=== PATIENT | female | born 1980 | race Caucasian/White ===

== ENCOUNTER → 2018-03-05 | Outpatient (CLI) | payer OTHER ==
[~2018-03-05] MED LIST: DARV PO; PREN0.01 PO
== END ==
LOC: HPND 09:05
PROVIDERS: ATTEND Obstetrics & Gynecology
DX: O09.522 Supervision of elderly multigravida, second trimester (principal); Z36.3 Encounter for antenatal screening for malformations
CPT/HCPCS: 76811

== ENCOUNTER 2018-07-16 11:01 | Inpatient (IN) ==
[2018-07-16] MEDS ORDERED: Sod Chloride 0.9% Inj 1,000 ML IV.CONT PRN (11:28)
[2018-07-16] MEDS ORDERED: fentaNYL Citrate Inj 100 MCG/2 ML Ampul IV.PUSH PRN ×2 (11:28)
[2018-07-16] MEDS ORDERED: Oxytocin 30 Units/500ml Premix 30 UNITS/500 ML BAG IV.SIG ONE (11:28)
[2018-07-16] MEDS ORDERED: Naloxone Inj 0.4 MG/ML Vial IV.PUSH PRN ×2 (11:28→15:51)
[2018-07-16] MEDS ORDERED: Sodium Chlor 0.9% Inj 500 ML IV.SIG PRN (11:28)
[2018-07-16] MEDS ORDERED: Citric Acid/Sodium Citrate Liq 30 ML UDC PO SCH (11:30)
--- NOTE | 2018-07-16 11:33 | ED ---
History of Present Illness Primary Care Physician: No Primary Care Physician [facility] History of Present Illness: at 26mib4mgq, presents with cxns since 1AM. Pt had a period amount of bleeding at 5AM this morning that has since subsided. +FM obhx: PAP smear w/ HPV during - f/u colpo x 1 - 2008 medhx: none surghx: none meds: PNV all: NKDA Review of Systems All other systems reviewed negative except as stated in HPI Medications and Allergies Allergies Allergy/AdvReac Type Severity Reaction Status Date / Time sulfamethoxazole Allergy Severe Unverified 05/07/17 14:57 trimethoprim Allergy Severe Unverified 05/07/17 14:57 Exam Vital signs: FH: 41 FHR: cat 1 tracing, will cont to monitor SVE: 6/80/-2 , bulging bag - Constitutional no acute distress - Routine Respiratory Exam Present: CTA bilaterally - Routine Cardiovascular Exam Present: RRR, S1, S2 - Routine Abdominal Exam Present: soft, normoactive bowel sounds Assessment and Plan - Diagnosis (1) 38 weeks gestation of Code(s): Z3A.38 - 38 weeks gestation of Status: Acute - Plan at [id number], presents with cxns since 1AM. - Admit to L&D - GBS negative - Continue to monitor labor progress - MD aware Discharge Plan - Discharge Disposition Patient Disposition: 30 Still Patient - Physicians Team ED Provider: Mansoor Duncan Primary Care Provider: Primary Care MarceloNo - Discharge Instructions Print Language: Angolan
[2018-07-16 12:02] LABS: Baso % (Auto) 0.1 % (0.0-2.0); Eos % (Auto) 0.1 % (0.0-4.0); Hematocrit 37.7 % (35.0-46.0); Hemoglobin 13.4 gm/dL (11.6-15.3); Lymph % (Auto) 6.7 % (9.0-44.0); Mean Corpuscular HGB Conc 35.5 % (32.0-36.0); Mean Corpuscular Hemoglobin 33.1 pg (27.0-34.0); Mean Corpuscular Volume 93.4 fL (80.0-100.0); Mono # (Auto) 0.7 th/mm3 (0.0-0.9); Mono % (Auto) 4.6 % (0.0-8.0); Neut # (Auto) 13.1 th/mm3 (1.8-7.7); Neut % (Auto) 88.5 % (16.0-70.0); Platelet Count 140 th/mm3 (150-450); Red Blood Count 4.03 mil/mm3 (4.00-5.30); Red Cell Distribution Width 12.3 % (11.6-17.2); White Blood Count 14.8 th/mm3 (4.0-11.0)
[2018-07-16] MEDS ORDERED: fentaNYL 2MCG-Bupiv 0.125% Epi 150 ML EPIDURAL ONE (12:50)
[2018-07-16] MEDS ORDERED: Lidocaine 1%/Epinephrine 1:200,000 PF Inj 30 ML Vial ONE (13:04)
[2018-07-16 13:24] LABS: Bacteria,Urine Moderate /hpf; Bilirubin,Urine Negative (Negative); Calcium Oxalate Crystals,Urine Occasional /hpf; Clarity,Urine Cloudy (Clear); Color,Urine Yellow (Yellw/Straw); Glucose,Urine (UA) Negative (Negative); Leukocyte Esterase,Urine Negative (Negative); Mucus,Urine Moderate /lpf (Occasional); Nitrite,Urine Negative (Negative); Squamous Epithelial Cell,Urine 2 /hpf (0-5)
[2018-07-16] MEDS ORDERED: fentaNYL 2MCG-Bupiv 0.125% Epi 150 ML EPIDURAL PRN (14:37)
[2018-07-16] MEDS ORDERED: fentaNYL Citrate Inj 100 MCG/2 ML Ampul EPIDURAL ONE (14:37)
[2018-07-16] MEDS ORDERED: Oxytocin 30 Units/500ml Premix 30 UNITS/500 ML BAG IV.CONT PRN ×2 (15:51)
[2018-07-16] MEDS ORDERED: Bisacodyl 10 MG Supp RECTAL PRN ×2 (15:51)
[2018-07-16] MEDS ORDERED: Benzocaine 20% Top Spray 60 ML Can TOPICAL PRN ×2 (15:51)
[2018-07-16] MEDS ORDERED: Acetaminophen 325 MG Tablet PO PRN ×2 (15:51)
[2018-07-16] MEDS ORDERED: Witch Hazel 50%/Glyderin 12.5% 40 Pad Jar RECTAL PRN ×2 (15:51)
[2018-07-16] MEDS ORDERED: Zolpidem Tartrate 5 MG Tablet PO PRN ×2 (15:51→21:00)
--- NOTE | 2018-07-16 15:56 | P.OBDELI ---
Weeks Gestation: 38 Patient Started Active Labor: Yes Artificial Rupture of Membrane: Yes Anesthesia: Epidural Episiotomy: none Vaginal Delivery: Normal, Spontaneous Presentation: Occiput anterior, Vertex Nuchal Cord: None Delayed Cord Clamping (45 sec): Yes Placenta: Spontaneous delivery, Intact, 3 vessel cord Laceration: None Estimated blood loss (mL): 150 : Male Infant Male A Infant Delivery Date: 07/16/18 Infant Delivery Time: 15:36 Weight: 3.34 kg score (1 min): 8 score (5 min): 9
[2018-07-16] MEDS ORDERED: Diphtheria/Tetanus/Pertussis Vaccine Inj 0.5 ML Syringe IM ONE (16:00)
[2018-07-16] MEDS ORDERED: Measles/Mumps/Rubella Vaccine Inj 0.5 ML Vial SQ ONE (17:00)
[2018-07-16 17:25] LABS: Amphetamine Urine With Conf Neg (Neg); Benzodiazepine Urine With Conf Neg (Neg)
[2018-07-16] MEDS ORDERED: Senna/Docusate Sodium 8.6/50 MG Tablet PO SCH (21:00)
[2018-07-17] MEDS: Senna/Docusate Sodium 8.6/50 MG Tablet PO SCH ×2 (07:21→08:42)
--- NOTE | 2018-07-17 08:23 | P.PNOB ---
Subjective Post day: 1 Interval history: day # 1 Afebrile with stable vitals overnight. Decreased lochia. Denies dysuria. No breast pain. Appetite good. No nausea or vomiting. Ambulating well. Denies calf pain or shortness of breath. Otherwise, she is doing well this morning and has no other complaints. Objective Vital Signs/I&O: Vital Signs 07/16/18 11:20 07/16/18 11:49 07/16/18 11:55 Temperature Pulse Rate 71 69 Respiratory Rate 18 Blood Pressure 111/75 07/16/18 12:10 07/16/18 12:40 07/16/18 13:05 Temperature Pulse Rate 63 72 69 Respiratory Rate Blood Pressure 124/61 116/62 07/16/18 13:15 07/16/18 13:21 07/16/18 13:25 Temperature 98.2 F Pulse Rate 74 88 86 Respiratory Rate 16 Blood Pressure 121/71 119/62 108/57 L 07/16/18 13:40 07/16/18 13:45 07/16/18 13:50 Temperature Pulse Rate 91 H 86 87 Respiratory Rate Blood Pressure 113/50 L 112/58 L 07/16/18 13:55 07/16/18 14:00 07/16/18 14:05 Temperature Pulse Rate 72 121 H Respiratory Rate 18 Blood Pressure 07/16/18 14:10 07/16/18 14:15 07/16/18 14:20 Temperature Pulse Rate 71 82 88 Respiratory Rate Blood Pressure 107/54 L 104/58 L 112/65 07/16/18 14:25 07/16/18 14:30 07/16/18 14:40 Temperature Pulse Rate 86 86 80 Respiratory Rate Blood Pressure 115/55 L 129/64 112/66 07/16/18 15:00 07/16/18 15:10 07/16/18 15:25 Temperature 98.4 F 98.5 F Pulse Rate 73 83 71 Respiratory Rate 18 Blood Pressure 114/94 H 07/16/18 15:44 07/16/18 15:45 07/16/18 16:00 Temperature Pulse Rate 89 86 Respiratory Rate 16 Blood Pressure 115/56 L 110/67 07/16/18 16:05 07/16/18 16:15 07/16/18 16:30 Temperature Pulse Rate 73 73 Respiratory Rate 16 Blood Pressure 103/67 114/62 07/16/18 16:44 07/16/18 16:45 07/16/18 17:15 Temperature Pulse Rate 73 Respiratory Rate 14 16 Blood Pressure 113/60 07/16/18 17:40 07/16/18 20:00 Temperature 98.8 F 98.4 F Pulse Rate 70 84 Respiratory Rate 18 18 Blood Pressure 113/65 105/67 Intake & Output 07/16/18 07/17/18 07/17/18 18:59 06:59 18:59 Weight 72.121 kg Result Diagrams: 07/16/18 11:45 Objective Remarks: General: Alert, well appearing, in no acute distress Skin: Warm and dry HEENT: Atraumatic. Moist mucus membranes Cardiac: Regular rate and rhythm without murmur Pulmonary: No increased work of breathing. Clear to auscultation bilaterally with good air movement. Abdominal: Non-tender. uterus firm and below the umbilicus Extremities: 2+ pedal pulses, no edema, no calf tenderness Medications and IVs: Active Medications Acetaminophen (Tylenol) 650 mg PO Q4H PRN PRN Reason: PAIN SCALE 1 TO 2 Al Hydroxide/Mg Hydroxide (Milk Of Magnesia Liq) 30 ml PO Q12H PRN PRN Reason: Mild Constipation Benzocaine (Americaine 20% Top [place]) 1 spray TOPICAL Q4H PRN PRN Reason: For Perineum Discomfort Bisacodyl (Dulcolax Supp) 10 mg RECTAL DAILY PRN PRN Reason: SEVERE CONSITIPATION Ephedrine Sulfate (Ephedrine/Ns Syringe) 10 mg IV.PUSH UNSCH PRN PRN Reason: SEE LABEL COMMENTS Stop: 07/17/18 14:37 Oxytocin (Pitocin 30 Units/Ns 500 Ml Premix) 30 units in 500 mls @ 100 mls/hr IV.CONT UNSCH PRN PRN Reason: Heavy bleeding Ibuprofen (Motrin) 800 mg PO Q8H PRN PRN Reason: For Cramping Lactulose (Lactulose Liq) 30 ml PO DAILY PRN PRN Reason: SEVERE CONSITIPATION Miscellaneous Information (Misc Information) 1 each OTHER UNSCH PRN PRN Reason: SEE LABEL COMMENTS Stop: 07/17/18 14:37 Miscellaneous Information (Misc Information) 1 each OTHER UNSCH PRN PRN Reason: SEE LABEL COMMENTS Stop: 07/17/18 14:37 Naloxone HCl (Narcan Inj) 0.1 mg IV.PUSH Q2M PRN PRN Reason: for opiate reversal Ondansetron HCl (Zofran Odt) 4 mg PO Q6H PRN PRN Reason: NAUSEA OR VOMITING Senna/Docusate Sodium (Priya-Colace) 1 tab PO BID [facility] Last Admin: 07/17/18 07:21 Dose: Not Given Sennosides (Senokot) 17.2 mg PO Q12H PRN PRN Reason: Moderate Constipation Sodium Chloride (Ns Flush) 2 ml IV.FLUSH BID [facility] Last Admin: 07/17/18 07:21 Dose: Not Given Sodium Chloride (Ns Flush) 2 ml IV.FLUSH PRN PRN PRN Reason: FLUSH AFTER USING IV ACCESS Witch [place]ireille/Glycerin (Tucks Pads) 1 applicatio RECTAL QID PRN PRN Reason: HEMORRHOIDS Zolpidem Tartrate (Ambien) 5 mg PO HS PRN PRN Reason: SLEEP Assessment and Plan - Diagnosis (1) 38 weeks gestation of Code(s): Z3A.38 - 38 weeks gestation of Status: Acute (2) Vaginal delivery Code(s): O80 - Encounter for full-term uncomplicated delivery Status: Acute - Plan 38 y/o female who is PPD# 1 s/p vaginal delivery -Continue routine care. -Motrin /APAP as needed for pain. -Encouraged OOB. Advised pelvic rest for 6 wks. - control: undecided -Anticipate DC home tomorrow Care was discussed with: Dr. Duncan
[2018-07-18 08:28] VITALS: BP 98/60; PULSE 87; RESP 20; TEMP 98.1
--- NOTE | 2018-07-18 08:45 | P.PNOB ---
Subjective Post day: 2 Interval history: day #2 AFVSS overnight. Decreased lochia. Denies dysuria. No breast pain. Appetite good. No nausea or vomiting. Ambulating well. Denies calf pain or shortness of breath. Reports left-sided back pain. Otherwise, she is doing well this morning and has no other complaints. Objective Vital Signs/I&O: Vital Signs 07/17/18 20:00 07/18/18 08:00 Temperature 98.6 F 98.1 F Pulse Rate 84 87 Respiratory Rate 18 20 Blood Pressure 96/54 L 98/60 L Result Diagrams: 07/16/18 11:45 Objective Remarks: GENERAL: Well-nourished, well-developed patient. CARDIOVASCULAR: Regular rate and rhythm without murmurs, gallops, or rubs. RESPIRATORY: Breath sounds equal bilaterally. No accessory muscle use. ABDOMEN/GI: Abdomen soft, non-tender. Fundus: Firm, non-tender at umbilicus. BACK: Left CVA tenderness GENITOURINARY: Light to moderate bleeding. EXTREMITIES: No cyanosis or edema, non-tender, without signs of DVT. Medications and IVs: Active Medications Acetaminophen (Tylenol) 650 mg PO Q4H PRN PRN Reason: PAIN SCALE 1 TO 2 Al Hydroxide/Mg Hydroxide (Milk Of Magnesia Liq) 30 ml PO Q12H PRN PRN Reason: Mild Constipation Benzocaine (Americaine 20% Top [place]) 1 spray TOPICAL Q4H PRN PRN Reason: For Perineum Discomfort Bisacodyl (Dulcolax Supp) 10 mg RECTAL DAILY PRN PRN Reason: SEVERE CONSITIPATION Oxytocin (Pitocin 30 Units/Ns 500 Ml Premix) 30 units in 500 mls @ 100 mls/hr IV.CONT UNSCH PRN PRN Reason: Heavy bleeding Ibuprofen (Motrin) 800 mg PO Q8H PRN PRN Reason: For Cramping Lactulose (Lactulose Liq) 30 ml PO DAILY PRN PRN Reason: SEVERE CONSITIPATION Naloxone HCl (Narcan Inj) 0.1 mg IV.PUSH Q2M PRN PRN Reason: for opiate reversal Ondansetron HCl (Zofran Odt) 4 mg PO Q6H PRN PRN Reason: NAUSEA OR VOMITING Senna/Docusate Sodium (Priya-Colace) 1 tab PO BID [facility] Last Admin: 07/17/18 08:42 Dose: Not Given Sennosides (Senokot) 17.2 mg PO Q12H PRN PRN Reason: Moderate Constipation Sodium Chloride (Ns Flush) 2 ml IV.FLUSH BID [facility] Last Admin: 07/17/18 08:41 Dose: Not Given Sodium Chloride (Ns Flush) 2 ml IV.FLUSH PRN PRN PRN Reason: FLUSH AFTER USING IV ACCESS Witch [place]/Glycerin (Tucks Pads) 1 applicatio RECTAL QID PRN PRN Reason: HEMORRHOIDS Last Admin: 07/17/18 11:31 Dose: 1 applicatio Zolpidem Tartrate (Ambien) 5 mg PO HS PRN PRN Reason: SLEEP Assessment and Plan - Diagnosis (1) 38 weeks gestation of Code(s): Z3A.38 - 38 weeks gestation of Status: Acute (2) Vaginal delivery Code(s): O80 - Encounter for full-term uncomplicated delivery Status: Acute - Plan 38y/o female who is PPD#2 s/p vaginal delivery. Left CVA tenderness -Follow-up UA -Continue routine care. -Motrin PRN pain. -Encouraged OOB. Advised pelvic rest for 6 wks. -D/c likely today or tomorrow wdw Dr. Becker
[2018-07-18 10:26] LABS: Bacteria,Urine Many /hpf; Bilirubin,Urine Negative (Negative); Clarity,Urine Hazy (Clear); Color,Urine Yellow (Yellw/Straw); Glucose,Urine (UA) Negative (Negative); Leukocyte Esterase,Urine Small (Negative); Nitrite,Urine Positive (Negative); Squamous Epithelial Cell,Urine 2 /hpf (0-5)
[2018-07-18] MEDS: Senna/Docusate Sodium 8.6/50 MG Tablet PO SCH (10:41)
[2018-07-18] MEDS ORDERED: Diphtheria/Tetanus/Pertussis Vaccine Inj 0.5 ML Syringe IM ONE (12:00)
== END 2018-07-18 16:05 | disposition home or self-care (01) ==
LOC: HOBED 11:01 → H2E 11:30 → H1EA 17:33
PROVIDERS: ADMIT Obstetrics & Gynecology Maternal & Fetal Medicine; ATTEND Obstetrics & Gynecology Maternal & Fetal Medicine